=== PATIENT | male | born 1990 | race Caucasian/White ===

== ENCOUNTER 2020-11-27 16:23 | Emergency (ER) | payer OTHER ==
[~2020-11-27] VITALS: Ht 182.9 cm; Wt 90.7 kg
[2020-11-27 19:08] LABS: ABSOLUTE NEUTROPHILS 5.1 thou/uL (1.4-8.2); BASOPHILS 0.4 % (0.0-2.0); EOSINOPHILS 1.3 % (0.0-3.0); HEMATOCRIT 42.5 % (42.0-52.0); HEMOGLOBIN 14.5 gm/dL (14.0-18.0); LYMPHOCYTES 20.2 % (24.0-44.0); MCH 28.9 pg (26.0-34.0); MCV 84.9 fL (80.0-100.0); MONOCYTES 10.6 % (1.0-8.0); PLATELET COUNT 245 thou/uL (150-400); POLYS 67.5 % (36.0-66.0); RBC 5.01 mil/uL (4.50-6.00); RDW 12.8 % (10.5-14.5); WBC 7.5 thou/uL (4.0-11.0)
[2020-11-27 19:12] LABS: CALCIUM 8.8 mg/dL (8.5-10.1); POTASSIUM 4.3 mmol/L (3.5-5.1)
[2020-11-27 19:18] LABS: ALBUMIN 4.1 g/dL (3.4-5.0); TOTAL BILIRUBIN 0.4 mg/dL (0.2-1.0); TOTAL PROTEIN 7.2 g/dL (6.4-8.2)
[2020-11-27] MEDS ORDERED: CIPROFLOXACIN500 M1 PO (20:02)
[2020-11-27 20:19] VITALS: BP 122/70
== END 2020-11-27 20:19 | disposition home or self-care (01) ==
LOC: ER 16:23
PROVIDERS: Emergency Medicine
DX: R19.7 Diarrhea, unspecified (principal); Z98.890 Other specified postprocedural states